=== PATIENT | female | born 1940 | race Two or more races ===

== ENCOUNTER 2021-05-25 10:17 | Outpatient (REF) | payer MEDICARE, SELFPAY ==
--- NOTE | 2021-05-26 08:42 | MHC.AU.HAS ---
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 At the time, there were issues getting ahold of the patient to schedule the fitting, and ultimately the hearing instruments had to be returned to [facility]. Patient is still interested in amplification, and arrives today with an updated audiogram (performed on 05/18/2021) and medical clearance from ENT, Dr. Loredo's office. The results of the audiogram were drastically different from the previous test on file (performed at [facility] on 02/12/2019). The newer audiogram showed the thresholds of both ears as symmetrical mild to severe sensorineural hearing loss. It was also noted on the audiogram that there were many false positives and patient needed re-instruction. The previous audiogram from 2019 showed a profound sensorineural hearing loss in the left ear, with 12% word discrimination, which is consistent with patient's report that she has not heard out of the left ear since an accident in childhood. A pure tone test was performed to verify thresholds. Today's results indicate a profound sensorineural hearing loss in the left ear and mild to severe sensorineural hearing loss in the right ear. Hearing instrument options were discussed. A BI-CROS system will be pursued. Hearing Aid Prescription: Based on the individual?s shared listening needs, communication environments, dexterity, desire for connectivity, and personal preferences, the following prescription for amplification has been made: Right ear: Product Mgmt Dev Manager: [email or web address] Model: Audeo P70-R Battery Size: Rechargeable Color: 01 Beige Anesthesiology Medical Doctor: 1M Left ear: Product Mgmt Dev Manager: Phon[employer] Model: CROS-P Battery Size: Rechargeable Color: 01 Beige Anesthesiology Medical Doctor: 1 Action Taken/Action Needed: Prior authorization to be requested Hearing Instrument Fitting to be scheduled when materials arrive Primary Diagnosis: H90.A22 SNHL, Unilatearl, Left Ear, W/Restricted Contralateral Hearing Signature: Provider: Eli Raygoza, MARTHA-A
== END 2021-05-25 10:18 | disposition home or self-care (01) ==
LOC: HO.HAP 10:17
PROVIDERS: Visit Provider Internal Medicine
DX: Z46.1 Encounter for fitting and adjustment of hearing aid (principal); H90.A22 Sensorineural hearing loss, unilateral, left ear, with restricted hearing on the contralateral side
CPT/HCPCS: 92591

== ENCOUNTER 2021-07-13 09:57 | Outpatient (REF) | payer MEDICARE, SELFPAY ==
--- NOTE | 2021-07-13 11:08 | MHC.AU.HFA ---
Hearing Instrument Fitting- Adult- Binaural Date of Visit: 07/13/21 Hearing Instruments Dispensed: Right Ear: Disbursing Agent: Phon[employer] Model: Audeo P70-R Serial Number: [id number] Repair Warranty: 09/24/2024 Loss and Damage Warranty: 09/24/2024 Service Plan: 07/13/2022 Battery Size: Rechargeable Color: 01 Beige Accounts Receivable Accountant: 1M Type of Dome: Small Power Type of Wax Guard: Cerushield Left Ear: Disbursing Agent: Phonak Model: CROS P-R Serial Number: [id number] Repair Warranty: 09/24/2024 Loss and Damage Warranty: 09/24/2024 Service Plan: 07/13/2022 Battery Size: Rechargeable Color: 01 Beige Accounts Receivable Accountant: 1 Type of Dome: Small Open Summary of Fitting: Feedback manager loss prevention run. Target gain at 100%. Verifit performed and levels adjusted to better reach targets. Patient reports the volume and clarity and good. She did not feel additional adjustments were necessary. Hearing aid care and maintenance discussed and practiced. Patient's family will be assisting with the daily care and use of the instruments. Patient does not have a smartphone to pair the instruments to at this time. Recommendations: Recommendations: A hearing instrument follow-up was scheduled. Diagnosis Code(s): Primary Diagnosis: H90.A22 SNHL, Unilatearl, Left Ear, W/Restricted Contralateral Hearing Signature: Provider: Eli Raygoza, [facility]
== END 2021-07-13 09:58 | disposition home or self-care (01) ==
LOC: HO.HAP 09:57
PROVIDERS: Visit Provider Internal Medicine
DX: Z46.1 Encounter for fitting and adjustment of hearing aid (principal); H90.A22 Sensorineural hearing loss, unilateral, left ear, with restricted hearing on the contralateral side
CPT/HCPCS: V5011; V5020; V5221; V5240

== ENCOUNTER 2021-08-03 10:23 | Outpatient (REF) | payer MEDICARE, SELFPAY | END 2021-08-03 10:24 | disposition home or self-care (01) | LOC: HO.HAP 10:23 | PROVIDERS: Visit Provider Internal Medicine | DX: Z13.89 Encounter for screening for other disorder (principal) ==